=== PATIENT | male | born 1990 | race Caucasian/White ===

== ENCOUNTER 2018-05-05 12:01 | Emergency (ER) | payer OTHER ==
[~2018-05-05] VITALS: Ht 180.3 cm; Wt 122.0 kg
[2018-05-05 12:05] VITALS: Ht 180.3 cm; Wt 122.0 kg
[2018-05-05 14:04] VITALS: BP 130/69
== END 2018-05-05 14:03 | disposition home or self-care (01) ==
LOC: ED 12:01
DX: J40 Bronchitis, not specified as acute or chronic (principal); K21.9 Gastro-esophageal reflux disease without esophagitis; F17.210 Nicotine dependence, cigarettes, uncomplicated; Z71.6 Tobacco abuse counseling
CPT/HCPCS: 99406

== ENCOUNTER 2019-08-31 13:02 | Emergency (ER) | payer OTHER ==
[~2019-08-31] VITALS: Ht 180.3 cm; Wt 125.6 kg
[2019-08-31 13:18] VITALS: BP 149/96; Ht 180.3 cm; Wt 125.6 kg
== END 2019-08-31 13:23 | disposition left against medical advice (07) ==
LOC: ED 13:02
DX: Z53.21 Procedure and treatment not carried out due to patient leaving prior to being seen by health care provider (principal)